=== PATIENT | male | born 1970 | race Caucasian/White ===

== ENCOUNTER 2019-11-29 15:33 | Emergency (ER) | payer OTHER, SELFPAY ==
[2019-11-29 15:47] VITALS: BP 155/79; PULSE 108; RESP 18; TEMP 37.7; O2SAT 98
--- NOTE | 2019-11-29 15:55 | ED.SKABFB ---
HPI - Skin/Abscess/Foreign Bdy General Chief complaint: Skin/Abscess/Foreign Body Stated complaint: cellulitis on right leg Time Seen by Provider: 11/29/19 15:55 Source: patient and RN notes reviewed History of Present Illness HPI narrative: Patient is a 49-year-old male who presents the urgent care with complaints of cellulitis to the right ankle. Patient states that started late last night/early this morning as well as his low-grade fever. Patient states that he always has a low-grade fever with the cellulitis however it has been approximately 3 years since his last episode . Patient states that he has never had a DVT. Currently denies of any calf or lower right extremity pain. Denies of any nausea or vomiting. Denies of shortness of breath or chest pain. Patient has not taken anything for his temperature or done anything for the area of cellulitis. No other acute complaints. No acute distress noted. Patient read the plan of care. Related Data Home Medications Medication Instructions Recorded Confirmed atorvastatin 11/29/19 diclofenac sodium TOPICAL 11/29/19 escitalopram oxalate mg 11/29/19 famotidine 11/29/19 famotidine 11/29/19 furosemide 11/29/19 meloxicam 11/29/19 metformin mg PO 11/29/19 metformin mg PO 11/29/19 tramadol mg 11/29/19 Allergies Allergy/AdvReac Type Severity Reaction Status Date / Time Sulfa (Sulfonamide Allergy Intermediate Rash Verified 11/29/19 16:14 Antibiotics) Review of Systems Review of Systems: Narrative: CONSTITUTIONAL: Denies fever, chills, or sweats. EYES: Denies visual changes, redness, or discharge. ENT: Denies rhinorrhea, congestion, sore throat, or otalgia. CARDIOVASCULAR: Denies chest pain, palpitations, or edema. RESPIRATORY: Denies cough or dyspnea. GASTROINTESTINAL: Denies abdominal pain, nausea, vomiting, or diarrhea. GENITOURINARY: Denies dysuria or hematuria. SKIN: Reports of a cellulitis to the right ankle MUSCULOSKELETAL: Denies back pain, joint pain, or myalgia. NEUROLOGIC: Denies headache, numbness, or weakness. All other systems reviewed are negative, except as documented in HPI. PMFSH Comments At the time of my signature, I reviewed and agree with the nursing past medical, surgical, social, and family history. There is no relevant family history pertinent to the patient complaint. Exam Narrative: Exam Narrative: GENERAL: This is a well-nourished, well-developed patient, in no apparent distress. HEAD: normocephalic, atraumatic. EYES: PERRL. Sclera clear/white. Vision is grossly intact. EARS: External ears normal NOSE: External nose normal with no obvious nasal discharge, nares without redness, no rhinorrhea. THROAT: Mucous membranes moist NECK: Neck supple, SKIN: Irregular 10 x 15 cm area of erythema to the posterior medial right lower extremity NEURO: awake, alert, and oriented to person, place and time. There were no obvious focal neurologic abnormalities. EXTREMITIES: Positive strong right pedal pulse with capillary refill less than 2 seconds. Range of motion to right lower extremity within normal limits. Negative bilateral Homans sign. Course Vital Signs Vital signs: Vital Signs Temperature 99.8 F H 11/29/19 15:47 Pulse Rate 108 H 11/29/19 15:47 Respiratory Rate 18 11/29/19 15:47 Blood Pressure 155/79 H 11/29/19 15:47 Pulse Oximetry 98 11/29/19 15:47 Temperature 99.8 F H 11/29/19 15:47 Pulse Rate 108 H 11/29/19 15:47 Respiratory Rate 18 11/29/19 15:47 Blood Pressure 155/79 H 11/29/19 15:47 Pulse Oximetry 98 11/29/19 15:47 Reviewed?patient is informed that they may have pre-hypertension or hypertension based on a blood pressure reading in the department. I recommend the patient call the primary care provider listed on their discharge instructions or a physician of their choice this week to arrange follow-up for further evaluation of possible pre-hypertension or hypertension. MDM - Skin/Abscess/Foreign Bd
== END 2019-11-29 16:27 | disposition home or self-care (01) ==
PROVIDERS: Emergency Provider Nurse Practitioner Family
DX: L03.115 Cellulitis of right lower limb (principal); E78.00 Pure hypercholesterolemia, unspecified; I10 Essential (primary) hypertension; E11.9 Type 2 diabetes mellitus without complications; Z79.84 Long term (current) use of oral hypoglycemic drugs
CPT/HCPCS: 99213; G0463

== ENCOUNTER 2021-12-14 13:54 | Emergency (ER) | payer OTHER, SELFPAY ==
[2021-12-14 14:00] VITALS: BP 125/83; PULSE 92; RESP 16; TEMP 36.2; O2SAT 97
--- NOTE | 2021-12-14 14:00 | ED.SKABFB ---
HPI - Skin/Abscess/Foreign Bdy General Chief complaint: Skin/Abscess/Foreign Body Stated complaint: incect bite, swollen near bite Time Seen by Provider: 12/14/21 14:00 Source: patient and RN notes reviewed History of Present Illness HPI narrative: Patient is a 51-year-old male who presents the urgent care with complaints of a possible spider bite to the left chest. Patient states that happened on Monday and he did not see the insect but believes it may have been a hummel spider. Patient denies any fever, nausea or vomiting. Patient has not taken anything [id number] for his symptoms. No other acute complaints. No acute distress noted. Patient aware of the plan of care. Some parts of this dictation were generated by voice recognition software and may contain typographical and/or grammatical inaccuracies. Related Data Home Medications Medication Instructions Recorded Confirmed atorvastatin 20 mg tablet 11/29/19 escitalopram oxalate 10 mg tablet mg 11/29/19 famotidine 20 mg tablet 11/29/19 furosemide 20 mg tablet 11/29/19 meloxicam 15 mg tablet 11/29/19 metformin 500 mg tablet,extended mg PO 11/29/19 release 24 hr tramadol 50 mg tablet mg 11/29/19 Allergies Allergy/AdvReac Type Severity Reaction Status Date / Time Sulfa (Sulfonamide Allergy Intermediate Rash Verified 12/14/21 14:04 Antibiotics) Review of Systems Review of Systems: CONSTITUTIONAL: Denies fever, chills, or sweats. EYES: Denies visual changes, redness, or discharge. ENT: Denies rhinorrhea, congestion, sore throat, or otalgia. CARDIOVASCULAR: Denies chest pain, palpitations, or edema. RESPIRATORY: Denies cough or dyspnea. GASTROINTESTINAL: Denies abdominal pain, nausea, vomiting, or diarrhea. GENITOURINARY: Denies dysuria or hematuria. SKIN: Reports of an insect bite with surrounding redness and tenderness to the left chest MUSCULOSKELETAL: Denies back pain, joint pain, or myalgia. NEUROLOGIC: Denies headache, numbness, or weakness. All other systems reviewed are negative, except as documented in HPI. PMFSH Comments At the time of my signature, I reviewed and agree with the nursing past medical, surgical, social, and family history. There is no relevant family history pertinent to the patient complaint. Exam Narrative: GENERAL: This is a well-nourished, well-developed patient, in no apparent distress. HEAD: normocephalic, atraumatic. EYES: PERRL. Sclera clear/white. Vision is grossly intact. EARS: External ears normal NOSE: External nose normal with no obvious nasal discharge, nares without redness, no rhinorrhea. THROAT: Mucous membranes moist NECK: Neck supple SKIN: insect bite measuring 5 x 2 cm, 0.25 cm center without drainage with surrounding 8 x 8 inches of erythema to the left chest/breast. warm, intact with no suspicious lesions or rash, good texture and turgor. NEURO: awake, alert, and oriented to person, place and time. There were no obvious focal neurologic abnormalities. EXTREMITIES: No clubbing, cyanosis, or edema. Course Course Level of Care: Express Care Visit Vital Signs Vital signs: Vital Signs Temperature 97.1 F L 12/14/21 14:00 Pulse Rate 92 12/14/21 14:00 Respiratory Rate 16 12/14/21 14:00 Blood Pressure 125/83 12/14/21 14:00 Pulse Oximetry 97 12/14/21 14:00 Oxygen Delivery Room Air 12/14/21 14:00 Temperature 97.1 F L 12/14/21 14:00 Pulse Rate 92 12/14/21 14:00 Respiratory Rate 16 12/14/21 14:00 Blood Pressure 125/83 12/14/21 14:00 Pulse Oximetry 97 12/14/21 14:00 Oxygen Delivery Room Air 12/14/21 14:00 Reviewed MDM - Skin/Abscess/Foreign Bdy MDM Narrative Medical decision making narrative: Advised patient complete the oral antibiotic regimen as prescribed. Be sure to eat and drink with medication. Use ice to the area as well as Benadryl for swelling. Keep the area clean with plain Dial soap and water. you develop any increase in swelling associate
== END 2021-12-14 14:10 | disposition home or self-care (01) ==
PROVIDERS: Emergency Provider Nurse Practitioner Family
DX: L03.313 Cellulitis of chest wall (principal)
CPT/HCPCS: 99213; G0463